=== PATIENT | female | born 1980 | race American Indian/Alaskan Native ===

== ENCOUNTER 2022-05-19 19:11 | Emergency (ER) | payer MEDICAID, MEDICARE ==
[2022-05-19] MEDS ORDERED: Ondansetron 4 MG Tab.DIS PO ONE (19:12)
[2022-05-19] MEDS: Ondansetron 4 MG Tab.DIS PO ONE (19:49)
[2022-05-19] MEDS: Prochlorperazine 10 MG/2 ML SDV IM ONE (20:00)
[2022-05-19 20:08] LABS: ESTIMATED GFR 93 mL/min (>60)
== END 2022-05-19 20:45 | disposition home or self-care (01) ==
LOC: FB.ED 19:11
DX: R06.4 Hyperventilation (principal); R73.9 Hyperglycemia, unspecified; R11.2 Nausea with vomiting, unspecified; Z88.0 Allergy status to penicillin
CPT/HCPCS: 36415; 80048; 81001; 87086; 96372; 99284; J0780; Q0162

== ENCOUNTER 2022-08-24 14:33 | Emergency (ER) | payer MEDICAID ==
[2022-08-24] MEDS ORDERED: traMADol 50 MG Tab PO ONE (14:34)
[2022-08-24] MEDS ORDERED: Dexamethasone 4 MG/ML SDV IM ONE (15:12)
[2022-08-24 16:00] LABS: CORONAVIRUS COVID-19 NAA NEGATIVE (NEGATIVE)
== END 2022-08-24 16:45 | disposition home or self-care (01) ==
LOC: FB.ED 14:33
DX: J02.9 Acute pharyngitis, unspecified (principal); Z88.0 Allergy status to penicillin; Z72.0 Tobacco use; Z20.822 Contact with and (suspected) exposure to COVID-19
CPT/HCPCS: 0240U; 87651-QW; 99284; A9270-GY; J1100

== ENCOUNTER 2023-01-12 20:13 | Emergency (ER) | payer MEDICAID | END 2023-01-12 20:45 | LOC: FB.ED 20:13 | DX: S00.531A Contusion of lip, initial encounter (principal); S00.83XA Contusion of other part of head, initial encounter; F10.929 Alcohol use, unspecified with intoxication, unspecified; Z88.0 Allergy status to penicillin; W18.30XA Fall on same level, unspecified, initial encounter | CPT/HCPCS: 99284 ==

== ENCOUNTER 2023-04-27 11:04 | Emergency (ER) | payer MEDICAID ==
[2023-04-27] MEDS: Sodium Chloride 0.9% 10 ML Syringe FLUSH PRN ×2 (11:30→13:00)
[2023-04-27 11:39] LABS: BASOPHILS ABSOLUTE AUTO 0.1 x10-3/uL (0.0-0.1); BASOPHILS PERCENT AUTO 0.6 % (0.2-1.5); EOSINOPHILS ABSOLUTE AUTO 0.2 x10-3/uL (0.0-0.8); EOSINOPHILS PERCENT AUTO 2.2 % (0.6-8.1); HEMATOCRIT 39.4 % (34.2-48.2); LYMPHOCYTES ABSOLUTE AUTO 2.2 x10-3/uL (1.0-4.4); MEAN CORPUSCULAR HEMOGLOBIN 26.9 pg (23.9-33.9); MEAN CORPUSCULAR VOLUME 81.6 fL (76.7-100.5); MONOCYTES ABSOLUTE AUTO 0.4 x10-3/uL (0.3-1.0); MONOCYTES PERCENT AUTO 4.6 % (4.4-15.7); NEUTROPHILS ABSOLUTE AUTO 6.5 x10-3/uL (1.5-6.3); NEUTROPHILS PERCENT AUTO 69.6 % (30.8-76.2); PLATELET COUNT,PLT 358 x10(3)uL (151-488); RED BLOOD CELL COUNT 4.82 x10(6)uL (3.60-5.20); RED CELL DISTRIBUTION WIDTH 17.7 % (12.3-16.5); WHITE BLOOD CELL COUNT,WBC 9.4 x10-3/uL (3.0-10.3)
[2023-04-27 11:47] LABS: BLOOD UREA NITROGEN,BUN 8 mg/dL (7-18); BUN/CREATININE RATIO 13.3 (9-20); CALCIUM 9.3 mg/dL (8.6-10.2); CARBON DIOXIDE,CO2 23 mmol/L (21-32); CHLORIDE,CL 104 mmol/L (100-110); CREATININE 0.6 mg/dL (0.55-1.02); ESTIMATED GFR 113 mL/min (>60); GLUCOSE RANDOM 117 mg/dL (80-116); POTASSIUM,K 3.7 mmol/L (3.5-5.3); SODIUM,NA 139 mmol/L (135-145)
[2023-04-27 11:51] LABS: INR 0.96 (1.00-1.24); PROTHROMBIN TIME 9.9 sec (9.0-11.1)
[2023-04-27 11:58] LABS: A/G RATIO 0.9; ALBUMIN 3.7 g/dL (3.5-5.2); ALKALINE PHOSPHATASE 124 IU/L (56-112); ASPARTATE AMNIOTRANSFERASE,AST 144 IU/L (5-25); BILIRUBIN TOTAL 0.6 mg/dL (0.1-1.3)
[2023-04-27 12:02] LABS: ALANINE AMINOTRANSFERASE,ALT 171 U/L (12-36)
[2023-04-27] MEDS ORDERED: Morphine 4 MG/ML VIAL IVPUSH ONE (12:34)
[2023-04-27] MEDS ORDERED: Ondansetron 4 MG/2 ML SDV IVPUSH ONE (12:34)
[2023-04-27] MEDS ORDERED: Ketorolac 30 MG/ML SDV IVPUSH ONE (12:34)
== END 2023-04-27 13:30 | disposition home or self-care (01) ==
LOC: FB.ED 11:04
DX: S09.90XA Unspecified injury of head, initial encounter (principal); R74.01 Elevation of levels of liver transaminase levels; F17.210 Nicotine dependence, cigarettes, uncomplicated; Z88.0 Allergy status to penicillin; W01.0XXA Fall on same level from slipping, tripping and stumbling without subsequent striking against object, initial encounter
CPT/HCPCS: 36415; 70450; 72125; 80053; 84484; 85025; 85610; 85730; 93005; 96374; 96375; 99284-25; J1885; J2270; J2405; J3490